=== PATIENT | male | born 1930 | race Caucasian/White ===

== ENCOUNTER 2020-01-05 07:48 | Emergency (ER) | payer MEDICARE, BC ==
[~2020-01-05] VITALS: Ht 177.8 cm; Wt 72.7 kg
[2020-01-05 07:56] VITALS: BP 141/70
[2020-01-05] MEDS ORDERED: bacitracin 15gm ointment TP ONE ×2 (08:10→09:35)
[2020-01-05] MEDS ORDERED: TETanus/Pertussis (Acell)/Diphther VAC/PF (Tdap-Adult) 0.5ml syringe IMVAC ONE (08:10)
[2020-01-05 08:34] LABS: BASOPHILS # (AUTO) 0.1 X10'3 (0-0.2); BASOPHILS % (AUTO) 1.4 % (0-1); EOSINOPHILS # (AUTO) 0.1 X10'3 (0-0.9); EOSINOPHILS % (AUTO) 1.5 % (0-6); HEMATOCRIT 46.1 % (42.0-52.0); HEMOGLOBIN 15.2 g/dl (14.0-17.9); LYMPHOCYTES # (AUTO) 2.1 X10'3 (1.1-4.8); LYMPHOCYTES % (AUTO) 31.5 % (21-51); MEAN CORPUSCULAR HEMOGLOBIN 32.3 PG (27.0-31.0); MEAN CORPUSCULAR VOLUME 97.6 FL (78-98); MEAN PLATELET VOLUME 7.6 FL (7.4-10.4); MONOCYTES # (AUTO) 0.5 X10'3 (0-0.9); MONOCYTES % (AUTO) 8.2 % (2-12); NEUTROPHILS # (AUTO) 3.7 X10'3 (1.8-7.7); NEUTROPHILS % (AUTO) 57.4 % (42-75); PLATELET COUNT 228 X10'3 (140-440); RED BLOOD COUNT 4.72 X10'6 (4.70-6.10); RED CELL DISTRIBUTION WIDTH 14.8 % (11.5-14.5); WHITE BLOOD COUNT 6.5 X10'3 (4.5-11.0)
[2020-01-05 08:53] LABS: ALANINE AMINOTRANSFERASE 16 U/L (12-78); ALBUMIN 3.5 G/DL (3.4-5.0); ALBUMIN/GLOBULIN RATIO 0.9 (1.1-1.5); ALKALINE PHOSPHATASE 101 IU/L (46-116); ANION GAP 8 (8-16); ASPARTATE AMINO TRANSFERASE 16 U/L (10-37); BILIRUBIN,TOTAL 0.8 MG/DL (0.1-1.0); BLOOD UREA NITROGEN 18 MG/DL (7-18); BUN/CREATININE RATIO 15.9 (5.4-32.0); CALCIUM 8.8 MG/DL (8.5-10.1); CHLORIDE 106 MMOL/L (99-107); CREATININE 1.13 MG/DL (0.60-1.10); GLUCOSE 101 MG/DL (70-104); SODIUM 142 MMOL/L (135-145); TOTAL CARBON DIOXIDE 27.7 MMOL/L (24-32); TOTAL PROTEIN 7.2 G/DL (6.4-8.2); eGFR 61 ML/MIN
--- NOTE | 2020-01-05 10:06 | NUR ---
WOUND CARE TO LEFT ARM. CLEANED WITH NS REPLACED SKIN BACK OVER TEARS TO MOST OF ARM, STERI- STRIPS APPLIED, BACITRACIN APPLIED, NON ADHERENT DSG APPLIED AND WRAPPED WITH GUAZE. PT JOSE WELL
--- NOTE | 2020-01-05 10:51 | NUR ---
straight cath attempted unable to pass prostate, mild bleeding. cude cath placed and conected to drainage bag, ua, will remove cath at dc
[2020-01-05 10:52] LABS: CLARITY,URINE CLOUDY (Clear); COLOR,URINE STRAW (Yellow); GLUCOSE, URINE NEGATIVE (Neg); KETONES,URINE 15 mg/dl (Neg); LEUKOCYTE ESTERASE ,URINE SMALL (Neg); NITRITES, URINE POSITIVE (Neg); OCCULT BLOOD,URINE MODERATE (Neg); PROTEIN,URINE NEGATIVE (Neg); UROBILINOGEN,URINE 0.2 E.U/dL (0.2-1.0)
[2020-01-05 10:53] LABS: UA COLLECTION TYPE FOLEY CATH
[2020-01-05 10:58] LABS: MUCUS STRANDS FEW /LPF (Neg); SQUAMOUS EPITHELIAL CELL,UR FEW /LPF (FEW); WBC CLUMPS,URINE FEW /HPF (NEGATIVE)
[2020-01-05 11:01] LABS: WBC,URINE TNTC /HPF (0-4)
[2020-01-05 11:02] LABS: BACTERIA,URINE NONE SEEN /HPF (Neg)
[2020-01-05] MEDS ORDERED: CEPH-572 PO (11:18)
[2020-01-07] MEDS ORDERED: NO HOME MEDS (15:03)
== END 2020-01-05 12:15 | disposition home or self-care (01) ==
LOC: ER 07:48
DX: S51.812A Laceration without foreign body of left forearm, initial encounter (principal); S02.40DA Maxillary fracture, left side, initial encounter for closed fracture; S02.32XA Fracture of orbital floor, left side, initial encounter for closed fracture; N28.9 Disorder of kidney and ureter, unspecified; Z79.899 Other long term (current) drug therapy; W18.30XA Fall on same level, unspecified, initial encounter; Y93.89 Activity, other specified; Y92.89 Other specified places as the place of occurrence of the external cause; Y99.8 Other external cause status
CPT/HCPCS: 36415; 70450; 80053; 81001; 84443; 84484; 85025; 87077; 87088; 87186; 90471; 90715; 93005; 99285

== ENCOUNTER 2020-12-31 18:17 | Emergency (ER) | payer MEDICARE, BC ==
[~2020-12-31] VITALS: Ht 185.4 cm; Wt 86.4 kg
[~2020-12-31 18:17] MED LIST: NO HOME MEDS
[2020-12-31] MEDS ORDERED: normal saline 1000ML IV soln IVB ONE (20:45)
[2020-12-31 21:09] LABS: BASOPHILS # (AUTO) 0.1 X10'3 (0-0.2); BASOPHILS % (AUTO) 0.8 % (0-1); EOSINOPHILS # (AUTO) 0.1 X10'3 (0-0.9); EOSINOPHILS % (AUTO) 1.1 % (0-6); HEMATOCRIT 48.9 % (42.0-52.0); HEMOGLOBIN 15.9 g/dl (14.0-17.9); LYMPHOCYTES # (AUTO) 1.8 X10'3 (1.1-4.8); LYMPHOCYTES % (AUTO) 16.3 % (21-51); MEAN CORPUSCULAR HEMOGLOBIN 31.2 PG (27.0-31.0); MEAN CORPUSCULAR HGB CONC 32.5 g/dL (33.0-36.5); MEAN PLATELET VOLUME 8.9 FL (7.4-10.4); MONOCYTES % (AUTO) 8.6 % (2-12); NEUTROPHILS # (AUTO) 8.1 X10'3 (1.8-7.7); NEUTROPHILS % (AUTO) 73.2 % (42-75); PLATELET COUNT 289 X10'3 (140-440); RED BLOOD COUNT 5.09 X10'6 (4.70-6.10); RED CELL DISTRIBUTION WIDTH 14.2 % (11.5-14.5); WHITE BLOOD COUNT 11.1 X10'3 (4.5-11.0)
[2020-12-31 21:18] LABS: ALANINE AMINOTRANSFERASE 17 U/L (12-78); ALBUMIN 3.1 G/DL (3.4-5.0); ALBUMIN/GLOBULIN RATIO 0.7 (1.1-1.5); ALKALINE PHOSPHATASE 119 IU/L (46-116); ANION GAP 14 (8-16); ASPARTATE AMINO TRANSFERASE 21 U/L (10-37); BILIRUBIN,TOTAL 0.5 MG/DL (0.1-1.0); BLOOD UREA NITROGEN 22 MG/DL (7-18); BUN/CREATININE RATIO 21.6 (5.4-32.0); CALCIUM 8.5 MG/DL (8.5-10.1); CHLORIDE 107 MMOL/L (99-107); CREATININE 1.02 MG/DL (0.60-1.10); GLUCOSE 78 MG/DL (70-104); POTASSIUM 4.7 MMOL/L (3.5-5.1); SODIUM 146 MMOL/L (135-145); TOTAL CARBON DIOXIDE 25.1 MMOL/L (24-32); TOTAL PROTEIN 7.7 G/DL (6.4-8.2); eGFR 69 ML/MIN
[2020-12-31 21:21] LABS: TROPONIN I < 0.04 NG/ML (0.0-0.05)
--- NOTE | 2020-12-31 23:00 | NUR ---
attempted straight cath without success, attempted by multiple nurses without success. aware.
[2020-12-31] MEDS ORDERED: normal saline 1000ml 1,000 ML IV ONE (23:35)
[2020-12-31] MEDS ORDERED: OLANZapine **IM** 10 mg inj. IM ONE (23:35)
[2020-12-31] MEDS ORDERED: QUET25TA36 PO (23:36)
[2020-12-31] MEDS ORDERED: MIRT-87 PO (23:36)
[2020-12-31] MEDS ORDERED: KEN0.1O TP (23:41)
[2020-12-31] MEDS ORDERED: BACI28.42 (23:41)
[2020-12-31] MEDS ORDERED: LORA-512 PO (23:41)
[2020-12-31] MEDS ORDERED: NYSPWD TP (23:41)
--- NOTE | 2021-01-01 04:00 | NUR ---
pt wanda horne'amaris with assistance from 4 people. successful with coude.
[2021-01-01 05:21] LABS: UA COLLECTION TYPE STRAIGHT CATH
[2021-01-01 05:22] LABS: CLARITY,URINE CLEAR (Clear); COLOR,URINE YELLOW (Yellow); GLUCOSE, URINE NEGATIVE (Neg); KETONES,URINE 80 mg/dl (Neg); PROTEIN,URINE NEGATIVE (Neg)
[2021-01-01 05:23] LABS: NITRITES, URINE NEGATIVE (Neg); OCCULT BLOOD,URINE TRACE-LYSED (Neg)
[2021-01-01 05:24] LABS: LEUKOCYTE ESTERASE ,URINE NEGATIVE (Neg); UROBILINOGEN,URINE 0.2 E.U/dL (0.2-1.0)
[2021-01-01 06:21] LABS: BACTERIA,URINE NONE SEEN /HPF (Neg); SQUAMOUS EPITHELIAL CELL,UR NONE SEEN /LPF (FEW)
[2021-01-01 06:34] LABS: WBC,URINE 0-4 /HPF (0-4)
[2021-01-01] MEDS ORDERED: AMOX-422 PO (06:58)
[2021-01-01 07:01] VITALS: BP 166/100
[2021-01-01] MEDS ORDERED: amox tr/potassium clavulanate 875/125mg TAB PO ONE (07:05)
--- NOTE | 2021-01-01 07:21 | NUR ---
report given to Miah at , prescription sent with patient, transport arranged
== END 2021-01-01 07:40 | disposition home or self-care (01) ==
LOC: ER 18:18
DX: J18.9 Pneumonia, unspecified organism (principal); R82.998 Other abnormal findings in urine; F03.91 Unspecified dementia, unspecified severity, with behavioral disturbance; Z86.73 Personal history of transient ischemic attack (TIA), and cerebral infarction without residual deficits; Z87.440 Personal history of urinary (tract) infections; Z79.2 Long term (current) use of antibiotics; Z79.899 Other long term (current) drug therapy
CPT/HCPCS: 36415; 71045; 80053; 81001; 84484; 85025; 93005; 96372; 99285; J3490; J7030

== ENCOUNTER 2021-02-25 15:17 | Emergency (ER) | payer MEDICARE, BC ==
[~2021-02-25] VITALS: Ht 165.1 cm; Wt 60.0 kg
[~2021-02-25 15:17] MED LIST changes: +BACI28.42; +KEN0.1O TP; +LORA-512 PO; +MIRT-87 PO; +NYSPWD TP; +QUET25TA36 PO
[2021-02-25] MEDS ORDERED: normal saline 1000ML IV soln IVB ONE (15:45)
[2021-02-25 16:14] LABS: BASOPHILS % (AUTO) 0.4 % (0-1); EOSINOPHILS % (AUTO) 0.5 % (0-6); HEMATOCRIT 42.4 % (42.0-52.0); HEMOGLOBIN 14.3 g/dl (14.0-17.9); LYMPHOCYTES # (AUTO) 1.3 X10'3 (1.1-4.8); LYMPHOCYTES % (AUTO) 18.4 % (21-51); MEAN CORPUSCULAR HEMOGLOBIN 31.6 PG (27.0-31.0); MEAN CORPUSCULAR HGB CONC 33.7 g/dL (33.0-36.5); MEAN CORPUSCULAR VOLUME 93.9 FL (78-98); MONOCYTES # (AUTO) 0.4 X10'3 (0-0.9); MONOCYTES % (AUTO) 6.2 % (2-12); NEUTROPHILS # (AUTO) 5.2 X10'3 (1.8-7.7); NEUTROPHILS % (AUTO) 74.5 % (42-75); PLATELET COUNT 256 X10'3 (140-440); RED BLOOD COUNT 4.51 X10'6 (4.70-6.10); RED CELL DISTRIBUTION WIDTH 14.8 % (11.5-14.5)
[2021-02-25 16:22] LABS: ALANINE AMINOTRANSFERASE 30 U/L (12-78); ALBUMIN 2.4 G/DL (3.4-5.0); ALBUMIN/GLOBULIN RATIO 0.5 (1.1-1.5); ALKALINE PHOSPHATASE 114 IU/L (46-116); ASPARTATE AMINO TRANSFERASE 28 U/L (10-37); BILIRUBIN,TOTAL 0.3 MG/DL (0.1-1.0); BLOOD UREA NITROGEN 19 MG/DL (7-18); BUN/CREATININE RATIO 17.8 (5.4-32.0); CALCIUM 7.8 MG/DL (8.5-10.1); CREATININE 1.07 MG/DL (0.60-1.10); GLUCOSE 107 MG/DL (70-104); TOTAL CARBON DIOXIDE 30.6 MMOL/L (24-32); TOTAL PROTEIN 7.1 G/DL (6.4-8.2); eGFR 65 ML/MIN
[2021-02-25] MEDS ORDERED: dextrose 5%-1/2 normal saline 1,000 ML IV ONE (16:35)
[2021-02-25 16:36] LABS: ANION GAP 8 (8-16); CHLORIDE 111 MMOL/L (99-107); SODIUM 150 MMOL/L (135-145)
[2021-02-25 20:40] VITALS: BP 124/70
== END 2021-02-25 21:13 | disposition home or self-care (01) ==
LOC: ER 15:18
DX: E87.0 Hyperosmolality and hypernatremia (principal); F03.91 Unspecified dementia, unspecified severity, with behavioral disturbance; Z79.899 Other long term (current) drug therapy; Z86.73 Personal history of transient ischemic attack (TIA), and cerebral infarction without residual deficits; Z87.440 Personal history of urinary (tract) infections
CPT/HCPCS: 36415; 71045; 71250; 80053; 85025; 93005; 96360; 96361; 99285